=== PATIENT | male | born 1990 | race Caucasian/White ===

== ENCOUNTER 2016-12-01 02:30 | Emergency (ER) | payer OTHER ==
[~2016-12-01 02:30] MED LIST: NS 1,000 ML IV ONE
[2016-12-01] MEDS ORDERED: ceFAZolin 1 GM VIAL IVP ONE (02:37)
[2016-12-01] MEDS ORDERED: CEFAZOLIN 2 GM/DEXTROSE/100 ML BAG IV ONE (02:39)
[2016-12-01] MEDS ORDERED: CEFAZOLIN 1 GM/DEXTROSE/50 ML BAG IV ONE (02:39)
[2016-12-01] MEDS ORDERED: fentaNYL 100 MCG/2 ML INJ IVP ONE (02:40)
[2016-12-01 02:49] LABS: % IMMATURE GRANULYOCYTES 0.2 % (0.0-1.1); ABSOLUTE IMMATURE GRANULOCYTES 0.02 10^3/uL (0.00-0.10); ADD DIFF? NO; ADD MORPH? NO; ADD SCAN? NO; ATYPICAL LYMPHOCYTE FLAG 80 (0-99); FRAGMENT RBC FLAG 0 (0-99); HEMATOCRIT 47.9 % (40.0-51.0); HEMOGLOBIN 16.2 g/dL (13.7-17.5); LEFT SHIFT FLG 0 (0-99); LIPEMIA HEMOLYSIS FLAG 90 (0-99); MEAN CELL HEMOGLOBIN 32.7 pg (27.9-34.1); MEAN CELL HEMOGLOBIN CONCENTR. 33.8 g/dL (32.4-36.7); MEAN CELL VOLUME 96.6 fL (81.5-99.8); MEAN PLATELET VOLUME 10.9 fL (8.7-11.7); PLATELET CLUMPS FLAG 0 (0-99); PLATELET COUNT 232 10^3/uL (150-400); RED BLOOD CELL COUNT 4.96 10^6/uL (4.40-6.38); RED CELL DISTRIBUTION WIDTH 12.7 % (11.5-15.2)
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
[2016-12-01] MEDS ORDERED: HYDROmorphONE/DILAUDID 1 MG/ML SYR ONE (02:52)
[2016-12-01 02:56] LABS: ANION GAP 19 mEq/L (8-16); CARBON DIOXIDE 21 mEq/l (22-31); CHLORIDE 110 mEq/L (97-110); ETHANOL SERUM 200 mg/dL (0-10); GLOMERULAR FILTRATION RATE > 60; GLUCOSE 106 mg/dL (70-100); POTASSIUM 3.5 mEq/L (3.5-5.2); SODIUM 150 mEq/L (134-144)
[2016-12-01] MEDS ORDERED: HYDROmorphONE/DILAUDID 1 MG/ML SYR IVP ONE (02:58)
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
[2016-12-01 04:16] VITALS: RESP 16; TEMP 98.1
[2016-12-01 04:19] VITALS: BP 127/84; PULSE 92; O2SAT 93
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
== END 2016-12-01 03:15 | disposition short-term general hospital (02) ==
LOC: EDUNIT#
DX: S41.111A Laceration without foreign body of right upper arm, initial encounter (principal); W25.XXXA Contact with sharp glass, initial encounter
CPT/HCPCS: 96365; G0480; J0690; J1170